=== PATIENT | male | born 1970 | race Caucasian/White ===

== ENCOUNTER 2023-05-20 10:36 | Outpatient (CLI) | payer BC | END 2023-05-20 10:37 | disposition home or self-care (01) | LOC: CSHCP 10:36 | PROVIDERS: ATTEND Internal Medicine Critical Care Medicine | DX: R06.09 Other forms of dyspnea (principal); J44.9 Chronic obstructive pulmonary disease, unspecified | CPT/HCPCS: 94060; 94664; 94726; 94729; 94760 ==